=== PATIENT | male | born 1955 | race Caucasian/White ===

== ENCOUNTER 2017-04-29 16:35 | Emergency (ER) | payer BC ==
[~2017-04-29] VITALS: Ht 180.3 cm; Wt 111.3 kg
[~2017-04-29 16:35] MED LIST: ALL300 PO; AMLO-110 PO; ATOR-24 PO; GABA-113 PO; HYDR-3419 PO; LOSA1TAB38 PO; MONT1TAB3 PO; OXYC-57 PO; ZNTT/150 PO
[2017-04-29 16:45] VITALS: TEMP 36.6; Ht 180.3 cm; Wt 111.3 kg
--- NOTE | 2017-04-29 18:22 | DIAGNOSTIC IMAGING REPORT ---
L FOOT MIN 3 VIEWS ROUTINE CLINICAL HISTORY: 61 years-old Male presenting with l foot pain mid arch . TECHNIQUE: Frontal, oblique, and lateral views of the left foot were obtained. COMPARISON: Correlation made to plain radiographs of the right foot from 2012. FINDINGS: Os trigonum noted. No acute fracture or malalignment. No evidence of loss of the longitudinal arch. No radiographic soft tissue abnormality. Mild degenerative change noted at the ankle and midfoot. IMPRESSION: No acute osseous injury of the left foot. Electronically signed by: Humphrey Barros M.D. 04/29/2017 6:20 PM Dictated Date/Time: 04/29/2017 6:19 PM
--- NOTE | 2017-04-29 18:22 | DIAGNOSTIC IMAGING REPORT ---
L ANKLE MIN 3 VIEWS ROUTINE HISTORY: 61 years-old Male L ankle pain lat acute left ankle pain COMPARISON: Left foot radiographs of same day. TECHNIQUE: 3 views of the left ankle FINDINGS: Os trigonum is noted. There is mild marginal spurring of the medial and lateral malleoli. There is no acute fracture or dislocation. Mild marginal spurring of the dorsal talus also noted. Mild soft tissue swelling about the ankle and dorsal midfoot. No opaque foreign body. Vascular calcifications noted. IMPRESSION: 1. Mild soft tissue swelling without acute fracture or dislocation. 2. Peripheral vascular disease. 3. Mild degenerative changes of the ankle. The above report was generated using voice recognition software. It may contain grammatical, syntax or spelling errors. Electronically signed by: Hemant Andino M.D. 04/29/2017 6:20 PM Dictated Date/Time: 04/29/2017 6:18 PM
[2017-04-29] MEDS ORDERED: HYDROCODONE/HOMATROPINE 1.5/5MG TAB PO STA (18:58)
[2017-04-29] MEDS ORDERED: HYDROCODONE/HOMATROPINE SYRUP 5MG/1.5MG 5ML UDP PO ONE (19:15)
[2017-04-29 19:22] VITALS: BP 160/99; PULSE 80; O2SAT 96
--- NOTE | 2017-04-29 21:24 | EMERGENCY ROOM VISIT NOTE ---
History Report prepared by Jbibturner: Joaquim Patton Under the Supervision of: Dr. Adolfo Gonzalez D.O. First contact with patient: 16:49 Chief Complaint: FALL Stated Complaint: POSSIBLE FRACTURE TO LEFT FOOT History of Present Illness The patient is a 61 year old male who presents to the Emergency Room with complaints of constant left foot pain s/p fall occurring shortly prior to arrival. He states that he fell off of a tree stand and landed on his left foot. He estimates that he fell 18 feet. The patient did not hit his head or lose consciousness. He is not on any blood thinners. He also complains of mild chest pain. The patient denies abdominal pain, back pain, or head pain. Patient has absolutely no other complaints. He was able to come in on crutches. He did not hit his head. No neck pain. Source of History: patient Onset: shortly prior to arrival Position: foot (left) Timing: constant Associated Symptoms: + chest pain (mild), No LOC, No headache, No abdominal pain, No back pain Review of Systems See HPI for pertinent positives & negatives. A total of 10 systems reviewed and were otherwise negative. Past Medical & Surgical Medical Problems: (1) GERD (gastroesophageal reflux disease) (2) Gout (3) HTN (hypertension) (4) Hypercholesterolemia (5) Seasonal allergies Surgical Problems: (1) History of herniorrhaphy (2) History of repair of anterior cruciate ligament of right knee Family History No pertinent family history stated. Social History Smoking Status: Former Smoker Housing Status: lives with family Occupation Status: employed Current/Historical Medications Scheduled Allopurinol (Allopurinol), 300 MG PO QAM Amlodipine (Norvasc), 5 MG PO QAM Atorvastatin (Lipitor), 1 TAB PO QAM Losartan Potassium (Cozaar), 1 TAB PO QAM Scheduled PRN Montelukast Sodium (Singulair), 1 TAB PO QAM PRN for Seasonal Allergies Allergies Coded Allergies: Oxycodone (Verified Allergy, Severe, "DECREASES RESPIRATORY EFFORT", 04/29) POLLEN (Verified Allergy, Intermediate, SNEEZING, COUGH, RUNNY NOSE, CONGESTION, 04/29/17) Propoxyphene (Verified Allergy, Mild, HEADACHE, 04/29/17) Physical Exam Vital Signs Date Time Temp Pulse Resp B/P (MAP) Pulse Ox O2 Delivery O2 Flow Rate FiO2 04/29/17 19:22 80 20 160/99 96 04/29/17 16:45 36.6 109 20 169/90 96 Room Air Physical Exam GENERAL: alert, well appearing, well nourished, no distress, non-toxic HEAD: normal cephalic, atraumatic EYE EXAM: normal conjunctiva, PERRL and EOM's grossly intact OROPHARYNX: no exudate, no erythema, lips, buccal mucosa, and tongue normal and mucous membranes are moist EARS: TMs clear b/l NECK: supple, no nuchal rigidity, no adenopathy, non-tender CHEST: stable to compression anteriorly and posteriorly. Mild mid-sternal reproducible tenderness. LUNGS: clear to auscultation. Normal chest wall mechanics HEART: no murmurs, S1 normal and S2 normal ABDOMEN: abdomen soft, non-tender, normo-active bowel sounds, no masses, no rebound or guarding. PELVIS: stable to compression anteriorly and posteriorly BACK: Back is symmetrical on inspection and there is no deformity, no midline tenderness, no CVA tenderness. UPPER EXTREMITIES: full active and passive range of motion of all joints without tenderness to palpation LOWER EXTREMITIES: Swelling over the medial arch of the left foot with bruising. NEURO EXAM: Normal sensorium, cranial nerves II-XII grossly intact, normal speech, no gross weakness of arms, no gross weakness of legs. GCS: 15. Medical Decision & Procedures ER Provider Diagnostic Interpretation: Radiology results as stated below per my review and the radiologist's interpretation: L FOOT MIN 3 VIEWS ROUTINE FINDINGS: Os trigonum noted. No acute fracture or malalignment. No evidence of loss of the longitudinal arch. No radiographic soft tissue abnormality. Mild degenerative change noted at the ankle and midfoot. IMPRESSION: No acute osseous injury of the left foot. Electronically signed by: Humphrey Barros M.D. 04/29/2017 6:20 PM L ANKLE MIN 3 VIEWS ROUTINE FINDINGS: Os trigonum is noted. There is mild marginal spurring of the medial and lateral malleoli. There is no acute fracture or dislocation. Mild marginal spurring of the dorsal talus also noted. Mild soft tissue swelling about the ankle and dorsal midfoot. No opaque foreign body. Vascular calcifications noted. IMPRESSION: 1. Mild soft tissue swelling without acute fracture or dislocation. 2. Peripheral vascular disease. 3. Mild degenerative changes of the ankle. The above report was generated using voice recognition software. It may contain grammatical, syntax or spelling errors. Electronically signed by: Hemant Andino M.D. 04/29/2017 6:20 PM Medications Administered Medications (Trade) Dose Ordered Sig/Syl Route Start Time Stop Time Status Last Admin Dose Admin Hydrocodone Bit/ Homatropine Methylb (Hycodan Syrup) 5 ml ONE ONCE PO 04/29/17 19:15 04/29/17 19:16 DC 04/29/17 19:17 5 ML ED Course ED COURSE: Vital signs were reviewed and showed tachycardia and hypertension The patients medical record was reviewed The above diagnostic studies were performed and reviewed. ED treatments and interventions as stated above. 1651: The patient was evaluated in room A11A. A complete history and physical examination was performed. 1914: Ordered Hycodan Syrup 5 mL PO. Upon reevaluation, the patient is resting comfortably. I discussed my findings with the patient and he understands and agrees with the treatment plan. Based on the patients age, coexisting illnesses, exam and lab findings the decision to treat as an outpatient was made. The patient remained stable while under my care. The patient appeared well at the time of discharge. Medical Decision Differential diagnoses include major intracranial, cervical, spinal, thoracic, abdominal, pelvic and neurologic injury. Fracture, contusion, sprain, strain, laceration, abrasions included as well. Patient is a 61-year-old male not all blood thinners that fell out of a tree stand onto his foot. He is complaining of mild left mid arch for pain. Vitals are unremarkable. Patient has no other complaints at this time. His exam is otherwise completely benign with the exception of left mid arch. He denied/ declined any back pain. He had faint reproducible midsternal chest wall pain. X-rays of his foot and ankle unremarkable. He was updated and discharged following a negative. He was instructed not to drive. He was given a walking boot. He has crutches at home. Recommend NWBT and repeat x-rays in 3-5 days if pain continues. Discussed with Pt concerning signs and symptoms to watch out for. Pt was instructed to follow up with their PCP and discussed with the patient their option to return to the ED at anytime for persistent or worsening symptoms. The appropriate anticipatory guidance and out-patient management, including indications for return to the emergency department, were explained at length to the patient and understood. Medication Reconcilliation Current Medication List: was personally reviewed by me Blood Pressure Screening Patient's blood pressure: Elevated blood pressure Blood pressure disposition: Referred to PCP Impression Primary Impression: Contusion, foot Scribe Attestation The scribe's documentation has been prepared under my direction and personally reviewed by me in its entirety. I confirm that the note above accurately reflects all work, treatment, procedures, and medical decision making performed by me. Departure Information Dispostion Home / Self-Care Referrals John Sharma DO (PCP) Forms HOME CARE DOCUMENTATION FORM, IMPORTANT VISIT INFORMATION Patient Instructions ED Contusion Foot, My [facility] Additional Instructions Please follow up with your primary care doctor with in the next 24 hours. Any worsening of your symptoms, please return to the ED immediately. This includes any fevers greater than 100.4, worsening pain, chest pain, shortness breath, no weakness or numbness in arms or legs, new pain, or any other concerning signs or symptoms from your standpoint. You were given medications during this visit that will inhibit your ability to drive, operate machinery and work. Please do NOT drive, operate machinery, drink alcohol or work for the next 12hrs. Please do not bear weight while having pain in her foot. Please use crutches. If continued to have pain over the next 3-5 days please get repeat x-rays. Problem Qualifiers Primary Impression: Contusion, foot Encounter type: initial encounter Laterality: left Qualified Codes: S90.32XA - Contusion of left foot, initial encounter
== END 2017-04-29 19:24 | disposition home or self-care (01) ==
LOC: C.EDB 16:37 → C.EDA 19:24
DX: S90.32XA Contusion of left foot, initial encounter (principal); W17.89XA Other fall from one level to another, initial encounter; M10.9 Gout, unspecified; I10 Essential (primary) hypertension; E78.00 Pure hypercholesterolemia, unspecified; Z98.890 Other specified postprocedural states; Z79.899 Other long term (current) drug therapy

== ENCOUNTER → 2017-05-20 | Outpatient (CLI) | payer BC ==
[~2017-05-20] MED LIST changes: +ASPI325T45 PO; -GABA-113 PO; -HYDR-3419 PO; +HYDR-5688 PO; -OXYC-57 PO; -ZNTT/150 PO
== END | disposition home or self-care (01) ==
LOC: C.RDSM 10:45
PROVIDERS: ATTEND Physical Medicine & Rehabilitation Sports Medicine
DX: S93.629A Sprain of tarsometatarsal ligament of unspecified foot, initial encounter (principal); X58.XXXA Exposure to other specified factors, initial encounter

== ENCOUNTER → 2017-05-20 | Outpatient (CLI) | payer BC ==
[~2017-05-20] MED LIST changes: -ASPI325T45 PO; -HYDR-5688 PO
--- NOTE | 2017-05-20 13:03 | DIAGNOSTIC IMAGING REPORT ---
L LOWER EXTREMITY WITHOUT CLINICAL HISTORY: 62 years-old Male presenting with SPRAIN IN LEFT FOOT. TECHNIQUE: Multidetector CT of the left foot was performed without the use of intravenous contrast. IV contrast: None. A dose lowering technique was used consistent with the principles of ALARA (as low as reasonably achievable). COMPARISON: Plain radiographs of the left foot from 05/20/2017. CT DOSE (mGy.cm): The estimated cumulative dose is 96.84. FINDINGS: Master Esthetician topogram: Unremarkable. Cystic change noted in the medial malleolus likely degenerative in etiology. Focal sclerosis in the subcortical region of the anterior medial talar dome. The overlying cortex appears intact. Additional sclerosis adjacent to the posterior facet of the talus likely bone island. Ankle mortise intact. Acute mildly comminuted fractures at the lateral base of the first metatarsal and base of the second metatarsal. Nondisplaced fracture at the plantar base of the third metatarsal also suggested (series 201 image 86). There is minimal lateral offset of the base of the second metatarsal relative to the middle cuneiforms. No offset of the base of the third or first metatarsals. No other fracture identified. IMPRESSION: 1. Findings consistent with Lisfranc injury pattern with fractures of the base of the first through third metatarsals and slight lateral offset of the second metatarsal. Presumed soft tissue injury of the Lisfranc ligament. 2. Heterogeneous sclerosis at the anterior medial talar dome either bone island or old osteochondral injury. 3. Degenerative change at the ankle. Electronically signed by: Humphrey Barros M.D. 05/20/2017 1:02 PM Dictated Date/Time: 05/20/2017 12:56 PM
== END | disposition home or self-care (01) ==
LOC: C.CTS 12:15
PROVIDERS: ATTEND Physical Medicine & Rehabilitation Sports Medicine
DX: S93.629A Sprain of tarsometatarsal ligament of unspecified foot, initial encounter (principal); X58.XXXA Exposure to other specified factors, initial encounter; S92.312A Displaced fracture of first metatarsal bone, left foot, initial encounter for closed fracture; S92.322A Displaced fracture of second metatarsal bone, left foot, initial encounter for closed fracture; S92.332A Displaced fracture of third metatarsal bone, left foot, initial encounter for closed fracture; M89.8X7 Other specified disorders of bone, ankle and foot; M19.072 Primary osteoarthritis, left ankle and foot

== ENCOUNTER → 2017-05-23 | Outpatient (CLI) | payer BC | END | disposition home or self-care (01) | LOC: C.CPL 16:04 | PROVIDERS: ATTEND Physician Assistant | DX: Z01.818 Encounter for other preprocedural examination (principal); S93.622A Sprain of tarsometatarsal ligament of left foot, initial encounter; X58.XXXA Exposure to other specified factors, initial encounter ==

== ENCOUNTER → 2017-05-26 | Day surgery (SDC) | payer BC ==
[2017-05-24 14:12] VITALS: Ht 177.8 cm; Wt 100.0 kg
[~2017-05-26] VITALS: Ht 177.8 cm; Wt 100.0 kg
[~2017-05-26] MED LIST changes: +ASPI325T45 PO; +ATROPINE SULFATE 0.1 MG/ML 5ML SYR IV PRN; +BUPIVACAINE 0.5 % 5 MG/1 ML MPF 30ML VIAL ONE; +CEFAZOLIN SOD 2000MG/10 ML IV PUSH IV ONE; +DEXAMETHASONE SOD INJ 4 MG/ML VIAL ONE; +FENTANYL CITRATE INJ 50 MCG/1 ML 2 ML VIAL IV PRN; +FENTANYL CITRATE INJ 50 MCG/1 ML 2 ML VIAL ONE; +HYDR-5688 PO; +HYDROCODONE/ACETAMOPHEN 5/325MG TAB ONE; +HYDROCODONE/ACETAMOPHEN 5/325MG TAB PO PRN; +LABETALOL HCL IV 5 MG/ML 20ML IV PRN; +LIDOCAINE HCL 2% 2 ML VIAL (20MG/ML) ONE; +LIDOCAINE/EPINEPHRINE 1% INJ 50 ML VIAL ONE; +MIDAZOLAM HCL 1 MG/ML 2ML VIAL ONE; +MoRPHine SULFATE 2 MG/ML CARP IV PRN; +MoRPHine SULFATE 4 MG/ML 1 ML CARP\\VIAL IV PRN; +ONDANSETRON INJ 2 MG/ML 2 ML VIAL IV PRN; +ONDANSETRON INJ 2 MG/ML 2 ML VIAL ONE; +PROPOFOL IV EMULSION 10 MG/ML 20 ML VIAL IV ONE; +SODIUM CHLORIDE 0.9% 1000ML 1,000 ML IV SCH
--- NOTE | 2017-05-26 07:57 | History & Physical Bridge Note ---
H&P Re-Evaluation Bridge Note: I have examined the patient, reviewed the History & Physical and in the interval since the performance of the History & Physical I have noted the following changes of clinical significance: No changes noted
--- NOTE | 2017-05-26 10:54 | [facility] Post Operative Brief Note ---
Immediate Operative Summary Operative Date May 26, 2017. Pre-Operative Diagnosis Left foot subacute Lisfranc injury Post-Operative Diagnosis Same as pre-op Procedure(s) Performed Open reduction and internal fixation of left tarsometatarsal joints Surgeon Wooden Frame Builder Surgeon(s) Dr. Oscar Landry PA-C Estimated Blood Loss 10ML Findings lis franc injury Specimens None Drains 0 Anesthesia LMA Complication(s) None Disposition Recovery Room / PACU
--- NOTE | 2017-05-26 11:21 | [facility] Operative Report ---
Operative Report Operative Date May 26, 2017. Pre-Operative Diagnosis Left foot subacute Lisfranc injury Post-Operative Diagnosis Same as pre-op Procedure(s) Performed Open reduction and internal fixation of left tarsometatarsal joints Surgeon Professor Of Oceanography Surgeon(s) Dr. Oscar Landry PA-C Estimated Blood Loss 10ML Findings Lisfranc injury left foot Specimens None Drains 0 Anesthesia LMA Complication(s) None Disposition Recovery Room / PACU Indications Patient is a 62-year-old male status post a fall from 15 feet out of a tree stand approximately 4 weeks ago. Complaining of left foot pain. X-rays were taken and there was concern for a Lisfranc injury. A CT scan was obtained and confirmed a left foot Lisfranc ligamentous injury. Surgical intervention recommended. He agreed to proceed with surgery. Risks and complications were discussed and informed consent was obtained. Description of Procedure Patient was taken to the operating room and placed under general anesthesia. He was given a peripheral nerve block preoperatively. He was given 2 g of IV Ancef for surgical prophylaxis. Timeout was performed. He was prepped and draped in routine sterile fashion. I was present during the entire case, please see Dr. Martinez's operative report for further detail. He was awakened and transferred to recovery room in stable condition. I attest to the content of the Intraoperative Record and any orders documented therein. Any exceptions are noted below.
--- NOTE | 2017-05-26 11:22 | Discharge Instructions-SurgCtr ---
Discharge Instructions Date of Service May 26, 2017. Visit Reason for Visit: Left Foot Tarsal Metatarsal Joint Sprain Discharge Discharge Diagnosis / Problem: Left foot tarsal metatarsal joint sprain Discharge Goals Goal(s): Decrease discomfort, Improve function, Increase independence Activity Recommendations Activity Limitations: per Instructions/Follow-up section Weightbearing Status: Left non-weightbearing (with crutches) Anesthesia . Post Anesthesia Instructions: If you have had General Anesthesia or IV Sedation: * Do not drive today. * Resume driving when surgeon permits. * Do not make important decisions or sign legal documents today. * Call surgeon for: 1. Temperature elevations greater than 101 degrees F. 2. Uncontrollable pain. 3. Excessive bleeding. 4. Persistent nausea and vomiting. 5. Medication intolerance (nausea, vomiting or rash). * For nausea and vomiting use only clear liquids such as: tea, soda, bouillon until nausea subsides, then gradually increase diet as tolerated. * If you have any concerns or questions, call your surgeon's office. If physician is unavailable and it is an emergency, call 911 or go to the nearest emergency room. . Instructions / Follow-Up Instructions / Follow-Up DIET: * Resume previous diet. MEDICATIONS: * Please take your prescriptions as instructed at your pre-op appointment and/ or see medication discharge instructions listed above. * [place] 5/325 mg 1-2 tabs every 4-6 hours as needed for pain * Aspirin 325 mg 1 tab by mouth twice a day with food 21 days postoperatively. Please take your first dose on 05/27/2017 with breakfast. * If concerns develop, call your physician's office at . SPECIAL CARE INSTRUCTIONS: * Ice to left foot as needed for pain/swelling * Elevate left foot above heart as needed for pain/swelling * Keep dressing clean, dry, intact. Keep splint on at all times. * Use crutches to assist with ambulation at all times. * Nonweightbearing left lower extremity at all times. Okay to wiggle toes as tolerated. * Your surgical extremity may be discolored due to prepping agents used on the skin. A bluish-green tint is a normal variant and should not cause alarm. Call your doctor at [phone] if: * Temperature above 101 degrees * Pain not relieved by pain medicine ordered * There is increased drainage or redness from any incision * You have any unanswered questions, problems or concerns. FOLLOW UP VISIT: * If not already scheduled, please call the office at to schedule a follow-up appointment. * You have a follow-up appointment scheduled with Jaja ECHEVARRIA on 05/06 at 8:45 AM * You have an appointment scheduled with Dr. Martinez on 06/08/2017 at 3:00 PM Diet Recommendations Home Diet: no limitations, resume previous diet Procedures Procedures Performed: Open reduction and internal fixation of left tarsometatarsal joints Pending Studies Studies pending at discharge: no Medical Emergencies . Who to Call and When: Medical Emergencies: If at any time you feel your situation is an emergency, please call 911 immediately. . Non-Emergent Contact Non-Emergency issues call your: Surgeon Call Non-Emergent contact if: temperature is above 101.5, your pain is not controlled, wound has increased redness, wound has increased pain, you have any medication questions . . "Provider Documentation" section prepared by Jaja Spear. . [place] Drug Monitoring Program Search Results: patient reviewed within database, no issues identified
[2017-05-26] MEDS: KETOROLAC TROMETHAMINE 30 MG/ML VIAL IV. PRN ×2 (11:52→11:55)
--- NOTE | 2017-05-26 11:59 | Anesthesia Progress Nt - [facility] ---
Anesthesia Post Op Note Date & Time May 26, 2017 at 11:58 Vital Signs Vital Signs Past 12 Hours Date Time Temp Pulse Resp B/P (MAP) Pulse Ox O2 Delivery O2 Flow Rate FiO2 05/26/17 11:39 107 19 05/26/17 11:39 107 19 94 05/26/17 11:35 161/111 (132) 05/26/17 11:35 36.8 05/26/17 11:34 107 20 05/26/17 11:34 106 20 95 05/26/17 11:31 155/110 (124) 05/26/17 11:29 111 17 05/26/17 11:29 110 17 96 05/26/17 11:27 171/85 (109) 05/26/17 11:26 171/85 (109) 05/26/17 11:24 110 14 05/26/17 11:24 110 14 97 05/26/17 11:20 Room Air 05/26/17 11:20 151/111 (136) 05/26/17 11:19 115 16 100 05/26/17 11:19 116 16 05/26/17 11:15 157/93 (116) 05/26/17 11:14 113 99 05/26/17 11:14 113 05/26/17 11:12 179/98 (138) 05/26/17 11:09 37.3 117 16 179/98 99 Diffusion Mask 5 05/26/17 07:39 36.5 97 18 149/100 (116) 95 Room Air Notes Mental Status: alert / awake / arousable, participated in evaluation Pt Amnestic to Procedure: Yes Nausea / Vomiting: adequately controlled Pain: adequately controlled Airway Patency, RR, SpO2: stable & adequate BP & HR: stable & adequate Hydration State: stable & adequate Anesthetic Complications: no major complications apparent
--- NOTE | 2017-05-26 12:12 | OPERATIVE REPORT ---
DATE OF OPERATION: 05/26/2017 PREOPERATIVE DIAGNOSIS: Subacute left foot Lisfranc injury, i.e. tarsometatarsal joint sprain. POSTOPERATIVE DIAGNOSIS: Same. PROCEDURE: Open reduction and internal fixation of the second tarsometatarsal joint and medial and middle cuneiform joint. SURGEON: Dr. Humphrey Martinez. STAFFING ACCOUNT MANAGER: Braulio Moore, fellow. SECOND STAFFING ACCOUNT MANAGER: Jaja Spear, physician's reproductive healthcare assistant. ANESTHESIA: Laryngeal mask. INDICATIONS OF PROCEDURE: The patient is a 62-year-old male who presented to my office 3 weeks out from a fall out of his street stand, resulting in the aforementioned injury. He was scheduled for surgery and is now approximately 1 month out from the injury. He has been made nonweightbearing. He has been imaged with x-rays, MRI and CT scan. He has fractures at the base of the first and second metatarsals and the middle cuneiform. There is static diastasis between the first and second ray, asymmetric to the contralateral side, indicative of a Lisfranc injury. The fractures are avulsions and did not appear to compromise the stability of bone. PROCEDURE IN DETAIL: Informed consent was obtained. The patient was identified as Cm Vasquez. He identified the operative site as the left foot. I marked it with my initials. A preoperative surgical timeout was performed and then, a preop dose of IV antibiotics was given. He was taken to the operating room and positioned supine on the OR table. A tourniquet was applied to the left thigh. The left leg was prepped and draped in the usual sterile fashion. DVT prophylaxis with foot pumps intraoperatively and early mobility and aspirin postoperatively. Prior to prepping and draping, examination under anesthesia was performed. Static diastasis between the first and second metatarsal bases was noted. The third through fifth and the first metatarsal were stable to stressing in both the AP and lateral planes both to plantar flexion, dorsiflexion and pronation abduction type stressing. There was minimal swelling of the foot. Bruising was resolved. The limb was exsanguinated with the Esmarch and tourniquet inflated to 250 mmHg. A longitudinal incision was made overlying the dorsalis pedis artery, which had been previously mapped out. Fluoroscopic images were also utilized to help orient the incision. This was made approximately 7-8 cm in length. The skin was sharply incised and blunt dissection was utilized down to subcutaneous tissues. The deep peroneal nerve was identified and retracted with the medial skin flap and protected. Further dissection more deeply identified the dorsalis pedis artery, which was also dissected out and isolated with a vessel loop. The tarsometatarsal articulation was identified with a needle and a longitudinal incision was made over the base of the second metatarsal and subperiosteal exposure of the joint between the medial and middle cuneiform, the base of the first and second metatarsal and the second tarsometatarsal joint was performed. Care was taken at all times to protect the neurovascular structure. The third metatarsal joint was identified and stressed and found to be stable. The first tarsometatarsal joint was identified and stressed and found to be stable. There was static diastasis between the second joint, which when stressed grossly opened up. The joint between the medial and middle cuneiform also showed some laxity, although not notable asymmetry. I felt that it would be best to fixate that as well. A freer was introduced into the tarsometatarsal articulation and granulation tissue that was present was excised, taking care to protect and preserve the cartilage. This was done proximally and medially along the second metatarsal. The wound was irrigated. There were a few small slivers of cartilage noted, but no significant damage to the joint was noted. A medial counter incision was made over the medial cuneiform. The skin was sharply incised and blunt dissection was performed down to the level of the periosteum. A pointed bone reduction clamp was then placed across the medial cuneiform and the second metatarsal reducing the Gantt in place. This took several attempts to get it perfect, so that it was not under distracted or over distracted. It was then pinned into place with a guidewire for the 4.0 cannulated screws. The reduction and positioning of the hardware was assessed in multiple biplanar fluoroscopy. The wire was in good position and then was overreamed with a 2.7-mm drill bit followed by the insertion of a 3.5 cortical screw from medial to lateral. This resulted in secure fixation in anatomic alignment of the Gantt. I then placed a clamp across the medial and middle cuneiforms, put a wire across there as well and overdrilled with a 2.7-mm reamer and inserted a 3.5-mm cortical screw. The initial screw that was inserted was of insufficient length and I therefore redrilled and inserted a screw of appropriate length. Both screws had excellent bites and the joints remained stable and well reduced. Tourniquet let down after approximately 90 minutes of inflation. Meticulous hemostasis was performed with electrocautery. Irrigation was performed. The medial incision was closed with interrupted horizontal mattress stitches 3-0 Prolene. The anterior incision was closed with 2-0 Vicryl for the capsular layer. The skin was then closed with 3-0 Prolene horizontal mattress stitches. There was pulsatile flow within the dorsalis pedis artery at the conclusion of the case. The incision essentially lied directly over the neurovascular bundle. The leg was cleaned with wet and dry sponges. A soft sterile dressing was applied along with a posterior splint with the ankle in neutral position. Prior to wound closure, 1% lidocaine and 0.5% Marcaine both with epinephrine were injected into the skin for perioperative analgesia. The patient was awakened from anesthesia without difficulty and taken to recovery room in stable condition. There were no specimens or complications. Counts were correct at the end of case. Blood loss was approximately 10 mL. At the conclusion of the operation, I spoke to patient's and informed her of my findings. Postoperative instructions were given. Plan will be for about 8-10 weeks of nonweightbearing and consideration of hardware removal no sooner than 4-6 months after surgery. I attest to the content of the Intraoperative Record and any orders documented therein. Any exception s are noted below.
[2017-05-26 12:49] VITALS: BP 149/95; PULSE 104; TEMP 36.7; O2SAT 95
== END | disposition home or self-care (01) ==
LOC: X.SURG 07:27
PROVIDERS: ATTEND Physical Medicine & Rehabilitation Sports Medicine
DX: S93.322A Subluxation of tarsometatarsal joint of left foot, initial encounter (principal); W14.XXXA Fall from tree, initial encounter; E78.5 Hyperlipidemia, unspecified; I10 Essential (primary) hypertension; M10.9 Gout, unspecified; E78.00 Pure hypercholesterolemia, unspecified; Z87.442 Personal history of urinary calculi

== ENCOUNTER → 2017-06-08 | Outpatient (CLI) | payer BC ==
[~2017-06-08] MED LIST changes: -AMLO-110 PO; +AMLO5TAB3 PO; +ASPECOTC PO; -ASPI325T45 PO; -ATROPINE SULFATE 0.1 MG/ML 5ML SYR IV PRN; -BUPIVACAINE 0.5 % 5 MG/1 ML MPF 30ML VIAL ONE; -CEFAZOLIN SOD 2000MG/10 ML IV PUSH IV ONE; -DEXAMETHASONE SOD INJ 4 MG/ML VIAL ONE; -FENTANYL CITRATE INJ 50 MCG/1 ML 2 ML VIAL IV PRN; -FENTANYL CITRATE INJ 50 MCG/1 ML 2 ML VIAL ONE; +FLUT0.15 NAE; -HYDROCODONE/ACETAMOPHEN 5/325MG TAB ONE; -HYDROCODONE/ACETAMOPHEN 5/325MG TAB PO PRN; -LABETALOL HCL IV 5 MG/ML 20ML IV PRN; -LIDOCAINE HCL 2% 2 ML VIAL (20MG/ML) ONE; -LIDOCAINE/EPINEPHRINE 1% INJ 50 ML VIAL ONE; -MIDAZOLAM HCL 1 MG/ML 2ML VIAL ONE; -MoRPHine SULFATE 2 MG/ML CARP IV PRN; -MoRPHine SULFATE 4 MG/ML 1 ML CARP\\VIAL IV PRN; -ONDANSETRON INJ 2 MG/ML 2 ML VIAL IV PRN; -ONDANSETRON INJ 2 MG/ML 2 ML VIAL ONE; -PROPOFOL IV EMULSION 10 MG/ML 20 ML VIAL IV ONE; -SODIUM CHLORIDE 0.9% 1000ML 1,000 ML IV SCH
== END | disposition home or self-care (01) ==
LOC: C.RDSM 12:12
PROVIDERS: ATTEND Physical Medicine & Rehabilitation Sports Medicine
DX: S93.622D Sprain of tarsometatarsal ligament of left foot, subsequent encounter (principal); X58.XXXD Exposure to other specified factors, subsequent encounter

== ENCOUNTER → 2017-07-18 | Outpatient (CLI) | payer BC ==
[~2017-07-18] MED LIST changes: +AMLO-110 PO; -AMLO5TAB3 PO; -ASPECOTC PO; +ASPI325T45 PO; -FLUT0.15 NAE
== END | disposition home or self-care (01) ==
LOC: C.RDSM 18:03
PROVIDERS: ATTEND Physical Medicine & Rehabilitation Sports Medicine
DX: S93.622D Sprain of tarsometatarsal ligament of left foot, subsequent encounter (principal); X58.XXXD Exposure to other specified factors, subsequent encounter

== ENCOUNTER → 2017-08-15 | Outpatient (CLI) | payer BC | END | disposition home or self-care (01) | LOC: C.RDSM 17:20 | PROVIDERS: ATTEND Physical Medicine & Rehabilitation Sports Medicine | DX: S93.622D Sprain of tarsometatarsal ligament of left foot, subsequent encounter (principal); X58.XXXA Exposure to other specified factors, initial encounter ==

== ENCOUNTER → 2017-09-12 | Outpatient (CLI) | payer BC | END | disposition home or self-care (01) | LOC: C.RDSM 13:54 | PROVIDERS: ATTEND Physical Medicine & Rehabilitation Sports Medicine | DX: S93.622D Sprain of tarsometatarsal ligament of left foot, subsequent encounter (principal); X58.XXXD Exposure to other specified factors, subsequent encounter ==

== ENCOUNTER → 2017-11-02 | Day surgery (SDC) | payer BC ==
[2017-10-11 09:18] VITALS: Ht 180.3 cm; Wt 100.0 kg
[~2017-11-02] VITALS: Ht 180.3 cm; Wt 100.0 kg
[~2017-11-02] MED LIST changes: +ACETAMINOPHEN 325 MG TAB PO PRN; +AMVISC PLUS 0.8ML SYRINGE INT OCU ONE; -ASPI325T45 PO; +ATROPINE SULFATE 0.1 MG/ML 5ML SYR IV PRN; +AcetaZOLAMIDE 250 MG TAB PO SCH; +BETAXOLOL HCL 0.25% OP SUSP PER DROP CHARGE OPR SCH; +BRIMONIDINE TART 0.2% OP SOLN PER DROP CHARGE ONE; +BSS FLUSH ONE; +ENDOCOAT 0.85ML SYRINGE INT OCU ONE; +EpINEphrine INJ 1MG/ML AMP 1 MG/ML AMP ONE; +FLUT0.15 NAE; -HYDR-5688 PO; +LACTATED RINGER'S 1000ML 500 ML IV SCH; +LIDOCAINE 4% OP SOLN DROP CHARGE ONE; +LIDOCAINE 4% OP SOLN DROP CHARGE OPR SCH; +LIDOCAINE HCL 1% MPF 2 ML VIAL ONE; +MIDAZOLAM HCL 1 MG/ML 2ML VIAL ONE; +MIX: 4ML BSS 1ML EPI 1:1000 PF INSTIL ONE; +MOXIFLOXACIN OPH SOLN PER DROP CHARGE ONE; +OCUCOAT 1 ML SOLN IO ONE; +POVIDONE-IODINE OP SOLN 30 ML BTL ONE; +PROPARACAINE 0.5% OP SOLN PER DROP CHARGE OPR SCH; +TOBRAMYCIN/DEXAMETHASONE OPH OINT PER APPLN CHARGE ONE
[2017-11-02] MEDS: PHENYLEPHRINE HCL 2.5% OP SOLN PER DROP CHARGE OPR SCH ×2 (06:50→06:56)
[2017-11-02] MEDS: TROPICAMIDE 1% OP SOLN PER DROP CHARGE OPR SCH ×2 (06:51→06:57)
[2017-11-02] MEDS: CYCLOPENTOLATE HCL 1% OP SOLN PER DROP CHARGE OPR SCH ×2 (06:52→06:58)
[2017-11-02] MEDS: MOXIFLOXACIN OPH SOLN PER DROP CHARGE OPR SCH ×2 (06:53→07:05)
--- NOTE | 2017-11-02 07:38 | [facility] Operative Report ---
Operative Report Date of Service November 02, 2017. Operative Report 1. PREOPERATIVE DIAGNOSIS: Pre Senile nuclear cataract, right eye. 2. POSTOPERATIVE DIAGNOSIS: Pre Senile nuclear cataract, right eye. 3. PROCEDURE: Phacoemulsification of right cataract with posterior chamber lens implant, type [employer], model Symfony [id number], power +17.0 diopters. ANESTHESIA: Local standby. SURGEON: Dr. Simons. COMPLICATIONS: None. OPERATING TIME: 10 minutes. 4. OPERATION AND FINDINGS: DESCRIPTION OF PROCEDURE: The right pupil was dilated. The anesthetic was administered using a topical technique. The right eye was prepped and draped. A speculum was placed. A clear corneal incision was formed. The chamber was filled with Amvisc Plus and Endocoat. Epinephrine solution was used. A paracentesis was placed. A capsulorrhexis was performed. The nucleus was hydrodissected. The lens was removed with phacoemulsification. Time was 1.98 seconds. The aspiration unit was used to remove the cortex. The capsule was filled with Amvisc Plus. The lens implant was folded and placed into the capsule. The lens implant was rotated to the correct position. The incision was hydrated. The Amvisc was aspirated. The wound was secure. The chamber was deep. The pupil was round. Brimonidine, TobraDex ointment and Vigamox solution were placed. The speculum was removed. The patient was returned to the Recovery Room in stable condition. I attest to the content of the Intraoperative Record and any orders documented therein. Any exceptions are noted below. The scribe's documentation has been prepared in my presence, under my direction and personally reviewed by me in its entirety. I confirm that the note above accurately reflects all work, treatment, procedures, and medical decision making performed by me. I personally scribed for Cm Simons M.D. ([email or web address]) on 11/02/17 at 07:38. Electronically submitted by Sophy LAFORD).
--- NOTE | 2017-11-02 07:39 | Discharge Instructions-SurgCtr ---
Discharge Instructions Date of Service November 02, 2017. Visit Reason for Visit: Cataract Right Eye Discharge Discharge Diagnosis / Problem: lens implant right eye Discharge Goals Goal(s): Improve function Activity Recommendations Activity Limitations: resume your previous activity Lifting Limitations: no more than 10 pounds Exercise/Sports Limitations: gradually increase as tolerated May Resume Sexual Activity: when tolerated Shower/Bathe: tomorrow Driving or Machine Use: resume 1 day after discharge Anesthesia . Post Anesthesia Instructions: If you have had General Anesthesia or IV Sedation: * Do not drive today. * Resume driving when surgeon permits. * Do not make important decisions or sign legal documents today. * Call surgeon for: 1. Temperature elevations greater than 101 degrees F. 2. Uncontrollable pain. 3. Excessive bleeding. 4. Persistent nausea and vomiting. 5. Medication intolerance (nausea, vomiting or rash). * For nausea and vomiting use only clear liquids such as: tea, soda, bouillon until nausea subsides, then gradually increase diet as tolerated. * If you have any concerns or questions, call your surgeon's office. If physician is unavailable and it is an emergency, call 911 or go to the nearest emergency room. . Instructions / Follow-Up Instructions / Follow-Up ACTIVITY RECOMMENDATIONS: * Light activities. * Mild irritation and blurred vision are common for the first few days. * You may walk outside, read, watch television. * Redness around the white part of the eye is common. MEDICATIONS: Resume previous medications unless instructed otherwise by your surgeon. * Take white Diamox (Acetazolamide) tablet at 1 pm today. Start all eye drops at 1 pm today: * Eye drops (today and tomorrow): Prednisone - one drop in operative eye every 3 hours while awake Ofloxacin - one drop in operative eye every 3 hours while awake SPECIAL CARE INSTRUCTIONS: * Tape plastic shield over eye to sleep at night. Call your doctor at with any concerns or problems. FOLLOW UP VISIT: Follow-up with Dr Simons at [facility] as scheduled. Diet Recommendations Home Diet: no limitations Procedures Procedures Performed: Right Cataract Phacoemulsification With Intraocular Lens Implant Pending Studies Studies pending at discharge: no Medical Emergencies . Who to Call and When: Medical Emergencies: If at any time you feel your situation is an emergency, please call 911 immediately. . Non-Emergent Contact Non-Emergency issues call your: Community Living Instructor Call Non-Emergent contact if: your pain is not controlled [phone] . . "Provider Documentation" section prepared by Cm Simons. .
[2017-11-02 07:42] VITALS: TEMP 36.5
--- NOTE | 2017-11-02 07:57 | Anesthesia Progress Nt - [facility] ---
Anesthesia Post Op Note Date & Time November 02, 2017 at 07:57 Vital Signs Pain Intensity: 0 Vital Signs Past 12 Hours Date Time Temp Pulse Resp B/P (MAP) Pulse Ox O2 Delivery O2 Flow Rate FiO2 11/02/17 07:42 36.5 78 16 136/83 (100) 96 Room Air 11/02/17 06:40 36.4 76 20 127/89 (102) 94 Room Air Notes Mental Status: alert / awake / arousable, participated in evaluation Pt Amnestic to Procedure: Yes Nausea / Vomiting: adequately controlled Pain: adequately controlled Airway Patency, RR, SpO2: stable & adequate BP & HR: stable & adequate Hydration State: stable & adequate Anesthetic Complications: no major complications apparent
[2017-11-02 08:12] VITALS: BP 128/88; PULSE 76; O2SAT 97
== END | disposition home or self-care (01) ==
LOC: X.SURG 06:25
PROVIDERS: ATTEND Specialist
DX: H25.11 Age-related nuclear cataract, right eye (principal); I10 Essential (primary) hypertension

== ENCOUNTER → 2018-02-01 | Day surgery (SDC) | payer BC ==
[2018-01-27 08:20] VITALS: Ht 180.3 cm; Wt 100.0 kg
[~2018-02-01] VITALS: Ht 180.3 cm; Wt 100.0 kg
[~2018-02-01] MED LIST changes: +500ML BSS 0.3ML EPI 1:1000PF IRRIG ONE; -AMLO-110 PO; +AMLO5TAB3 PO; +BETAXOLOL HCL 0.25% OP SUSP PER DROP CHARGE OPL SCH; -BETAXOLOL HCL 0.25% OP SUSP PER DROP CHARGE OPR SCH; +EpHEDrine SULFATE INJ 50 MG/ML AMP IV PRN; +FENTANYL CITRATE INJ 50 MCG/1 ML 2 ML VIAL IV PRN; +LIDOCAINE 4% OP SOLN DROP CHARGE OPL SCH; -LIDOCAINE 4% OP SOLN DROP CHARGE OPR SCH; -MONT1TAB3 PO; -OCUCOAT 1 ML SOLN IO ONE; +ONDANSETRON INJ 2 MG/ML 2 ML VIAL IV PRN; +PROPARACAINE 0.5% OP SOLN PER DROP CHARGE OPL SCH; -PROPARACAINE 0.5% OP SOLN PER DROP CHARGE OPR SCH
[2018-02-01] MEDS: PHENYLEPHRINE HCL 2.5% OP SOLN PER DROP CHARGE OPL SCH ×2 (08:41→08:46)
[2018-02-01] MEDS: TROPICAMIDE 1% OP SOLN PER DROP CHARGE OPL SCH ×2 (08:42→08:47)
[2018-02-01] MEDS: CYCLOPENTOLATE HCL 1% OP SOLN PER DROP CHARGE OPL SCH ×2 (08:43→08:48)
[2018-02-01] MEDS: MOXIFLOXACIN OPH SOLN PER DROP CHARGE OPL SCH ×2 (08:44→08:54)
--- NOTE | 2018-02-01 09:19 | [facility] Operative Report ---
Operative Report Date of Service Feb 01, 2018. Operative Report 1. PREOPERATIVE DIAGNOSIS: Pre senile nuclear cataract, left eye. 2. POSTOPERATIVE DIAGNOSIS: Pre senile nuclear cataract, left eye. 3. PROCEDURE: Phacoemulsification of left cataract with posterior chamber lens implant, type [employer], model MI60L, power +16.5 diopters. ANESTHESIA: Local standby. SURGEON: Dr. Simons. COMPLICATIONS: None. OPERATING TIME: 10 minutes. 4. OPERATION AND FINDINGS: DESCRIPTION OF PROCEDURE: The left pupil was dilated. The anesthetic was administered using a topical technique. The left eye was prepped and draped. A speculum was placed. A clear corneal incision was formed. The chamber was filled with Amvisc Plus and Endocoat. Epinephrine solution was used. A paracentesis was placed. A capsulorrhexis was performed. The nucleus was hydrodissected. The lens was removed with phacoemulsification. Time was 2.72 seconds. The aspiration unit was used to remove the cortex. The capsule was filled with Amvisc Plus. The lens implant was folded and placed into the capsule. The incision was hydrated. The Amvisc was aspirated. The wound was secure. The chamber was deep. The pupil was round. Brimonidine, TobraDex ointment and Vigamox solution were placed. The speculum was removed. The patient was returned to the Recovery Room in stable condition. I attest to the content of the Intraoperative Record and any orders documented therein. Any exceptions are noted below. The scribe's documentation has been prepared in my presence, under my direction and personally reviewed by me in its entirety. I confirm that the note above accurately reflects all work, treatment, procedures, and medical decision making performed by me. I personally scribed for Cm Simons M.D. ([email or web address]) on 02/01/18 at 09:19. Electronically submitted by Sophy Alicea ([email or web address]).
--- NOTE | 2018-02-01 09:20 | Discharge Instructions-SurgCtr ---
Discharge Instructions Date of Service Feb 01, 2018. Visit Reason for Visit: Cataract Left Eye Discharge Discharge Diagnosis / Problem: lens implant left eye Discharge Goals Goal(s): Improve function Activity Recommendations Activity Limitations: resume your previous activity Lifting Limitations: no more than 10 pounds Exercise/Sports Limitations: gradually increase as tolerated May Resume Sexual Activity: when tolerated Shower/Bathe: tomorrow Driving or Machine Use: resume 1 day after discharge Anesthesia . Post Anesthesia Instructions: If you have had General Anesthesia or IV Sedation: * Do not drive today. * Resume driving when surgeon permits. * Do not make important decisions or sign legal documents today. * Call surgeon for: 1. Temperature elevations greater than 101 degrees F. 2. Uncontrollable pain. 3. Excessive bleeding. 4. Persistent nausea and vomiting. 5. Medication intolerance (nausea, vomiting or rash). * For nausea and vomiting use only clear liquids such as: tea, soda, bouillon until nausea subsides, then gradually increase diet as tolerated. * If you have any concerns or questions, call your surgeon's office. If physician is unavailable and it is an emergency, call 911 or go to the nearest emergency room. . Instructions / Follow-Up Instructions / Follow-Up ACTIVITY RECOMMENDATIONS: * Light activities. * Mild irritation and blurred vision are common for the first few days. * You may walk outside, read, watch television. * Redness around the white part of the eye is common. MEDICATIONS: Resume previous medications unless instructed otherwise by your surgeon. * Take white Diamox (Acetazolamide) tablet at 1 pm today. Start all eye drops at 1 pm today: * Eye drops (today and tomorrow): Prednisone - one drop in operative eye every 3 hours while awake Ofloxacin - one drop in operative eye every 3 hours while awake SPECIAL CARE INSTRUCTIONS: * Tape plastic shield over eye to sleep at night. Call your doctor at with any concerns or problems. FOLLOW UP VISIT: Follow-up with Dr Simons at [facility] as scheduled. Diet Recommendations Home Diet: no limitations Procedures Procedures Performed: Left Cataract Phacoemulsification With Intraocular Lens Implant Pending Studies Studies pending at discharge: no Medical Emergencies . Who to Call and When: Medical Emergencies: If at any time you feel your situation is an emergency, please call 911 immediately. . Non-Emergent Contact Non-Emergency issues call your: Mainframe Programmer Call Non-Emergent contact if: your pain is not controlled [phone] . . "Provider Documentation" section prepared by Cm Simons. .
[2018-02-01 09:21] VITALS: TEMP 36.4
[2018-02-01 09:38] VITALS: BP 126/82; PULSE 68; O2SAT 95
--- NOTE | 2018-02-01 09:41 | Anesthesia Progress Nt - [facility] ---
Anesthesia Post Op Note Date & Time Feb 01, 2018 at 09:41 Vital Signs Pain Intensity: 0 Vital Signs Past 12 Hours Date Time Temp Pulse Resp B/P (MAP) Pulse Ox O2 Delivery O2 Flow Rate FiO2 02/01/18 09:38 68 22 126/82 (97) 95 Room Air 02/01/18 09:21 36.4 77 16 135/90 (105) 97 Room Air 02/01/18 08:27 36.5 79 16 156/86 (109) 95 Room Air Notes Mental Status: alert / awake / arousable, participated in evaluation Pt Amnestic to Procedure: Yes Nausea / Vomiting: adequately controlled Pain: adequately controlled Airway Patency, RR, SpO2: stable & adequate BP & HR: stable & adequate Hydration State: stable & adequate Anesthetic Complications: no major complications apparent
== END | disposition home or self-care (01) ==
LOC: X.SURG 08:08
PROVIDERS: ATTEND Specialist
DX: H26.8 Other specified cataract (principal); I10 Essential (primary) hypertension; Z88.5 Allergy status to narcotic agent; Z79.899 Other long term (current) drug therapy; M19.90 Unspecified osteoarthritis, unspecified site

== ENCOUNTER → 2018-02-06 | Outpatient (CLI) | payer BC ==
[~2018-02-06] MED LIST changes: -500ML BSS 0.3ML EPI 1:1000PF IRRIG ONE; -ACETAMINOPHEN 325 MG TAB PO PRN; -AMVISC PLUS 0.8ML SYRINGE INT OCU ONE; -ATROPINE SULFATE 0.1 MG/ML 5ML SYR IV PRN; -AcetaZOLAMIDE 250 MG TAB PO SCH; -BETAXOLOL HCL 0.25% OP SUSP PER DROP CHARGE OPL SCH; -BRIMONIDINE TART 0.2% OP SOLN PER DROP CHARGE ONE; -BSS FLUSH ONE; -ENDOCOAT 0.85ML SYRINGE INT OCU ONE; -EpHEDrine SULFATE INJ 50 MG/ML AMP IV PRN; -EpINEphrine INJ 1MG/ML AMP 1 MG/ML AMP ONE; -FENTANYL CITRATE INJ 50 MCG/1 ML 2 ML VIAL IV PRN; -LACTATED RINGER'S 1000ML 500 ML IV SCH; -LIDOCAINE 4% OP SOLN DROP CHARGE ONE; -LIDOCAINE 4% OP SOLN DROP CHARGE OPL SCH; -LIDOCAINE HCL 1% MPF 2 ML VIAL ONE; -MIDAZOLAM HCL 1 MG/ML 2ML VIAL ONE; -MIX: 4ML BSS 1ML EPI 1:1000 PF INSTIL ONE; -MOXIFLOXACIN OPH SOLN PER DROP CHARGE ONE; -ONDANSETRON INJ 2 MG/ML 2 ML VIAL IV PRN; -POVIDONE-IODINE OP SOLN 30 ML BTL ONE; -PROPARACAINE 0.5% OP SOLN PER DROP CHARGE OPL SCH; -TOBRAMYCIN/DEXAMETHASONE OPH OINT PER APPLN CHARGE ONE
[2018-02-06 13:28] LABS: ALBUMIN 3.9 gm/dl (3.4-5.0); ALKALINE PHOSPHATASE 75 U/L (45-117); ALT/SGPT 61 U/L (12-78); AST/SGOT 25 U/L (15-37); BLOOD UREA NITROGEN 19 mg/dl (7-18); CALCIUM 9.1 mg/dl (8.5-10.1); CARBON DIOXIDE 23 mmol/L (21-32); CHOLESTEROL 132 mg/dl (0-200); CREATININE 1.05 mg/dl (0.60-1.40); GLUCOSE 128 mg/dl (70-99); LDL CHOLESTEROL CALCULATED 70 mg/dl; POTASSIUM 3.9 mmol/L (3.5-5.1); SODIUM 139 mmol/L (136-145); TOTAL PROTEIN 7.5 gm/dl (6.4-8.2)
== END | disposition home or self-care (01) ==
LOC: C.LABPVFM 08:33
PROVIDERS: ATTEND Family Medicine
DX: E78.2 Mixed hyperlipidemia (principal)